=== PATIENT | male | born 1985 | race Caucasian/White ===

== ENCOUNTER 2024-03-20 17:51 | Emergency (ER) | payer BC ==
[~2024-03-20] VITALS: Ht 188 cm; Wt 95.9 kg
[2024-03-20] MEDS: LIDOcaine 1% W/epiNEPHrine 1:100,000 20ml vial SQ ONE (18:49)
[2024-03-20] MEDS ORDERED: ONDA-243 PO (19:12)
[2024-03-20] MEDS ORDERED: HYDR-3972 PO (19:12)
[2024-03-20 19:19] VITALS: BP 124/86; PULSE 95; RESP 16; TEMP 98.5; O2SAT 95
== END 2024-03-20 19:23 | disposition home or self-care (01) ==
LOC: ER 17:52
DX: S62.665A Nondisplaced fracture of distal phalanx of left ring finger, initial encounter for closed fracture (principal); X58.XXXA Exposure to other specified factors, initial encounter; Y93.17 Activity, water skiing and wake boarding; Y92.89 Other specified places as the place of occurrence of the external cause; Y99.8 Other external cause status
CPT/HCPCS: 29130; 73130; 99283; A6449